=== PATIENT | female | born 2000 | race American Indian/Alaskan Native ===

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

== ENCOUNTER 2018-07-20 14:31 | Inpatient (IN) | payer OTHER ==
[2018-07-20] MEDS ORDERED: Oxytocin/Lactated Ringers 10 UNIT/1,000 ML BAG IV SCH (18:16)
[2018-07-20] MEDS ORDERED: Calcium Gluconate 10% 1 GM/10 ML SDV IV PRN (18:16)
[2018-07-20] MEDS ORDERED: Misoprostol 100 MCG Tab VAG PRN (18:16)
[2018-07-20] MEDS ORDERED: Ondansetron 4 MG/2 ML SDV IVPUSH PRN (18:16)
[2018-07-20] MEDS ORDERED: Sodium Chloride 0.9% 10 ML Syringe FLUSH PRN (18:16)
[2018-07-20] MEDS ORDERED: Misoprostol 25 MCG (1/4 of 100 MCG) Tab ONE ×2 (18:16→22:39)
--- NOTE | 2018-07-20 18:37 | PCM.LDHP ---
L&D History of Present Illness - General Date of Service: 07/20/18 Admit Problem/Dx: Patient Status Order with Admit Dx/Problem 07/20/18 18:16 Patient Status [ADT] Routine Admission Diagnosis/Problem Admission Diagnosis/Problem Pre-eclampsia in third trimester Source of Information: Patient History Limitations: Reports: No Limitations - History of Present Illness Introduction:: Gladis Flaherty is a 17-year-old at 38 weeks 5 days by 11 week ultrasound who was sent down to labor and delivery for evaluation of elevated blood pressures in the clinic. Her initial blood pressure in the clinic was 154 /84 and on repeat was 144/80. She denied any headaches, vision changes or epigastric pain with her elevated blood pressures. She denies any contractions or cramping. Denies any continuous leaking of fluid or vaginal bleeding. Reports that she did have 2 episodes of small amounts of leaking of fluid that did not continue and stopped spontaneously. She has been having good movement. Present Illness Comments:: Gladis Flaherty is a 17-year-old at 38 weeks 5 days by 11 week ultrasound who is undergoing medical induction of labor for preeclampsia without severe features. Her has been overall uncomplicated. She was given the flu shot on 01/13/2018. She was given TDaP vaccine on 05/11/2018. She has had routine care with myself starting at 11 weeks gestational age. 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 G1: 08/2017, SAB at approximately 6 weeks' gestational age G2: Current labs Blood type: A+ Antibody screen: Negative First trimester hematocrit/hemoglobin: 40.4%/13.2 on 01/13/2018 Platelets: 452 on 01/13/2018 Urine culture: Negative Rubella status: Immune Hepatitis B surface antigen: Negative RPR: Negative HIV: Negative Gonorrhea: Negative Chlamydia: Negative Anatomy ultrasound: Normal anatomy ultrasound, posterior placenta One hour glucose tolerance test: Abnormal at 231 Second trimester hematocrit/hemoglobin: 29.2%/9.0 on 06/16/2018 Platelets: 398 on 06/16/2018 3 hour glucose tolerance test: Fasting 95, 1 hour 155, 2 hour 116 and three- hour 115 GBS status: Negative - Related Data Allergies/Adverse Reactions: Allergies Allergy/AdvReac Type Severity Reaction Status Date / Time No Known Allergies Allergy Verified 07/20/18 15:35 Home Medications: Home Meds Vit No.129/Iron/FA [ One Daily Tablet] 1 tab PO DAILY 02/27/18 [History] Promethazine [Phenergan] 25 mg PO Q6H PRN 07/02/18 [History] Past Medical History Genitourinary History: Reports: UTI, Recurrent 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: , 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 Psychiatric History: Reports: Anxiety, Depression, Suicide Attempt (History of) - Past Surgical History HEENT Surgical History: Reports: Other (See Below) Other HEENT Surgeries/Procedures: ear surgery Social & Family History - Family History Family Medical History: Noncontributory - Tobacco Use Smoking Status *Q: Never Smoker - Tobacco Core Measures Tobacco Use/Smoking Within Last 30 Days: No Smokeless Tobacco Use in Last 30 Days: No - Caffeine Use Caffeine Use: Reports: Soda - Alcohol Use Alcohol Use History: No - Recreational Drug Use Recreational Drug Use: No - Living Situation & Occupation Living situation: Reports: Single Occupation: Employed H&P Review of Systems - Review of Systems: Review Of Systems: See Below General: Denies: Fever, Chills, Malaise, Weakness, Fatigue HEENT: Reports: Rhinitis, Post Nasal Drip, Sinus Congestion. Denies: Sore Throat, Visual Changes Pulmonary: Reports: Shortness of Breath (For the last 2 weeks), Cough (With viral respiratory illness) Cardiovascular: Denies: Chest Pain, Palpitations, Orthopnea Gastrointestinal: Denies: Abdominal Pain, Constipation, Diarrhea, Nausea, Vomiting Genitourinary: Denies: Dysuria, Frequency, Burning, Pain, Urgency Musculoskeletal: Reports: Back Pain (And pelvic pain) Skin: Denies: Rash, Lesions Psychiatric: Denies: Depression, Anxiety, Suicidal Ideation Neurological: Denies: Headache Hematologic/Lymphatic: Reports: Anemia L&D Exam - Exam Exam: See Below - Vital Signs Vital Signs: Last Vital Signs Temp 36.8 C 07/20/18 14:48 Pulse 102 H 07/20/18 16:00 Resp 16 07/20/18 14:48 BP 135/81 07/20/18 16:00 Pulse Ox 98 07/20/18 14:48 Weight: 105.007 kg - OB Specific Contraction Intensity: Irritability Movement: Active Heart Tones: Present Heart Tones per Min: 150 (+15 x 15 accelerations, no decelerations) Heart Rate (FHR) Variability: Moderate (6-25 bmp) Presentation: Vertex Estimated Weight: 7.5-8 pounds by Jonah's - Chisholm Score Chisholm Score Cervix Position: Posterior Chisholm Score Consistency: Medium Chisholm Score Effacement: 0-30% Chisholm Score Dilation: Closed (0.5 cm) Chisholm Score 's Station: -3 (-4) Chisholm Score Total: 1 - Exam General: Alert, Oriented HEENT: Conjunctiva Clear, EOMI Neck: Supple, Trachea Midline Lungs: Clear to Auscultation, Normal Respiratory Effort Cardiovascular: Regular Rate, Regular Rhythm GI/Abdominal Exam: Soft, Non-Tender, No Distention, Other (Gravid). No: Guarding, Rigid, Rebound Genitourinary: Normal external exam Back Exam: Normal Inspection Extremities: Normal Inspection, Pedal Edema (1+) Skin: Warm, Dry, Intact DTR: 1+: Bicep (L), Bicep (R), Patella (L), Patella (R) Psychiatric: Alert, Normal Affect, Normal Mood - Patient Data Lab Results Last 24 hrs: Laboratory Results - last 24 hr 07/20/18 07/20/18 07/20/18 Range/Units 14:55 14:55 16:10 WBC 11.01 H (3.98-10.04) K/mm3 RBC 4.06 (3.98-5.22) M/mm3 Hgb 9.3 L (11.2-15.7) gm/L Hct 31.7 L (34.1-44.9) % MCV 78.1 L (79.4-94.8) fl MCH 22.9 L (25.6-32.2) pg MCHC 29.3 L (32.2-35.5) g/dl RDW Std Deviation 54.5 H (36.4-46.3) fL Plt Count 425 H (182-369) K/mm3 MPV 8.3 L (9.4-12.3) fl Neut % (Auto) 74.8 H (34.0-71.1) % Lymph % (Auto) 15.0 L (19.3-51.7) % [place] % (Auto) 6.7 (4.7-12.5) % Eos % (Auto) 1.4 (0.7-5.8) Baso % (Auto) 0.3 (0.1-1.2) % Neut # (Auto) 8.24 H (1.56-6.13) K/mm3 Lymph # (Auto) 1.65 (1.18-3.74) K/mm3 [place] # (Auto) 0.74 H (0.24-0.36) K/mm3 Eos # (Auto) 0.15 (0.04-0.36) K/mm3 Baso # (Auto) 0.03 (0.01-0.08) K/mm3 Manual Slide Review Abnormal smear Sodium 139 (136-145) mEq/L Potassium 4.1 (3.5-5.1) mEq/L Chloride 103 (98-107) mEq/L Carbon Dioxide 22 (21-32) mEq/L Anion Gap 18.1 H (5-15) BUN 10 (7-18) mg/dL Creatinine 0.8 (0.55-1.02) mg/dL Est Cr Clr Drug Dosing 101.78 mL/min Estimated GFR (MDRD) > 60 (>60) mL/min BUN/Creatinine Ratio 12.5 L (14-18) Glucose 153 H (74-106) mg/dL Calcium 9.1 (8.5-10.1) mg/dL Total Bilirubin 0.2 (0.2-1.0) mg/dL AST 23 (15-37) U/L ALT 22 (14-59) U/L Alkaline Phosphatase 163 H (46-116) U/L Total Protein 6.8 (6.4-8.2) g/dl Albumin 2.3 L (3.4-5.0) g/dl Globulin 4.5 gm/dL Albumin/Globulin Ratio 0.5 L (1-2) Ur Random Creatinine 107.5 (30.0-125.0) mg/dL U Random Total Protein 112.3 H (0.0-11.8) mg/dL Protein/Creatinin Ratio 1044.7 H (0-149) mg/g Result Diagrams: 07/20/18 14:55 07/20/18 14:55 - Problem List (1) 38 weeks gestation of SNOMED Code(s): 48974008 ICD Code: Z3A.38 - 38 WEEKS GESTATION OF Status: Acute Current Visit: Yes (2) Pre-eclampsia during in third trimester, antepartum SNOMED Code(s): 938033691, 124906407 ICD Code: O14.93 - UNSPECIFIED PRE-ECLAMPSIA, THIRD TRIMESTER Status: Acute Current Visit: Yes (3) Abnormal glucose tolerance test during , antepartum Status: Acute Current Visit: Yes (4) Anemia affecting in third trimester SNOMED Code(s): 81370089, 64932171 ICD Code: O99.013 - ANEMIA COMPLICATING , THIRD TRIMESTER Status: Acute Current Visit: Yes (5) Anxiety SNOMED Code(s): 78054060 ICD Code: F41.9 - ANXIETY DISORDER, UNSPECIFIED Status: Acute Current Visit: Yes (6) Depression SNOMED Code(s): 11058125 ICD Code: F32.9 - MAJOR DEPRESSIVE DISORDER, SINGLE EPISODE, UNSPECIFIED Status: Acute Current Visit: Yes Problem List Initiated/Reviewed/Updated: Yes Orders Last 24hrs: Active Orders 24 hr Category Date Time Status Patient Status [ADT] Routine ADT 07/20/18 18:16 Active Activity as Tolerated [RC] PFP Care 07/20/18 18:16 Active Communication Order [RC] ASDIRECTED Care 07/20/18 18:16 Active Communication Order [RC] ASDIRECTED Care 07/20/18 18:16 Active Communication Order [RC] ASDIRECTED Care 07/20/18 18:16 Active Communication Order [RC] ASDIRECTED Care 07/20/18 18:16 Active Communication Order [RC] ASDIRECTED Care 07/20/18 18:16 Active Heart Tones [RC] ASDIRECTED Care 07/20/18 18:16 Active Monitoring [RC] CONTINUOUS Care 07/20/18 18:16 Active Notify Provider Status Change [RC] ASDIRECTED Care 07/20/18 18:16 Active Notify Provider Vital Signs [RC] PRN Care 07/20/18 18:16 Active Notify Provider [RC] ASDIRECTED Care 07/20/18 18:16 Active Notify Provider [RC] ASDIRECTED Care 07/20/18 18:16 Active Notify Provider [RC] PFP Care 07/20/18 18:16 Active Notify Provider [RC] PRN Care 07/20/18 18:16 Active Oxygen Therapy [RC] PRN Care 07/20/18 18:16 Active Peripheral IV Care [RC] . DIRECTED Care 07/20/18 18:16 Active Pump Management, Intrathecal [RC] ASDIRECTED Care 07/20/18 18:16 Active Urinary Catheter Assessment [RC] ASDIRECTED Care 07/20/18 18:16 Active Vaginal Exam [RC] ASDIRECTED Care 07/20/18 18:16 Active Vital Signs [RC] ASDIRECTED Care 07/20/18 18:16 Active Vital Signs [RC] ASDIRECTED Care 07/20/18 18:16 Active Vital Signs [RC] PER UNIT ROUTINE Care 07/20/18 18:16 Active Regular Diet [DIET] Diet 07/20/18 Dinner Active RAPID PLASMA REAGIN,RPR [CHEM] Routine Lab 07/20/18 18:16 Ordered Calcium Gluconate Med 07/20/18 18:16 Active 1 gm IV ASDIRECTED PRN Lactated Ringers [Ringers, Lactated] 1,000 ml Med 07/20/18 18:16 Active IV ASDIRECTED Ondansetron [Zofran] Med 07/20/18 18:16 Active 4 mg IVPUSH Q4H PRN Oxytocin/Lactated Ringers [Pitocin in LR 10 Units/1,000 Med 07/20/18 18:16 Active ML] 10 unit in 1,000 ml IV .CONTINUOUS Sodium Chloride 0.9% [Saline Flush] Med 07/20/18 18:16 Active 10 ml FLUSH ASDIRECTED PRN miSOPROStol [Cytotec] Med 07/20/18 18:16 Active 25 mcg VAG Q4H PRN Blood Pressure [OM.PC] ASDIRECTED Oth 07/20/18 18:16 Ordered Deep Tendon Reflexes [WOMSER] ASDIRECTED Oth 07/20/18 18:16 Ordered Electronic Heart Tones Ext w TOCO [WOMSER] Oth 07/20/18 18:16 Ordered Routine Electronic Heart Tones Internal [WOMSER] Per Unit Oth 07/20/18 18:16 Ordered Routine Peripheral IV Insertion Adult [OM.PC] Routine Oth 07/20/18 18:16 Ordered Resuscitation Status Routine Resus Stat 07/20/18 14:39 Ordered Medication Orders Calcium Gluconate (Calcium Gluconate) 1 gm IV ASDIRECTED PRN PRN Reason: respiratory distress Lactated Ringer's (Ringers, Lactated) 1,000 mls @ 100 mls/hr IV ASDIRECTED ELLIOTT Oxytocin/Lactated Ringer's (Pitocin In Lr 10 Units/1,000 Ml) 10 unit in 1,000 mls @ 100 mls/hr IV .CONTINUOUS ELLIOTT Misoprostol (Cytotec) 25 mcg VAG Q4H PRN PRN Reason: cervical ripening Last Admin: 07/20/18 18:26 Dose: 25 mcg Ondansetron HCl (Zofran) 4 mg IVPUSH Q4H PRN PRN Reason: Nausea/Vomiting Sodium Chloride (Saline Flush) 10 ml FLUSH ASDIRECTED PRN PRN Reason: Keep Vein Open Assessment/Plan Comment:: Refer to observation for medical induction of labor with preeclampsia without severe features based on mild range blood pressures 4 hours apart and urine protein/creatinine ratio of 1.044 Start induction of labor with Cytotec 25 mcg vaginally now and every 4 hours Attempt was made for introduction of 24 [place] Ortiz bulb but unable to place the Ortiz bulb at the time of exam. Will reattempt based on progression of labor. Intermittent monitoring while on Cytotec with monitoring for 30 minutes after placement of Cytotec and may ambulate as tolerated with category [address] IV and have Lactated Ringer's at 125 ml/hr if not tolerating regular diet May have regular diet while on Cytotec induction Activity as tolerated May have epidural as desired Plans to breast-feed after delivery Monitor blood pressures closely for severe range pressures that would need treatment Anticipate vaginal delivery unless otherwise indicated Amrik Medina M.D. 6:47 PM 07/20/2018
[2018-07-20] MEDS ORDERED: Bupivacaine 0.25% 10 ML SDV ONE (22:00)
[2018-07-20] MEDS: Lactated Ringers 1,000 ML IV SCH (22:00)
[2018-07-21] MEDS ORDERED: Misoprostol 25 MCG (1/4 of 100 MCG) Tab ONE (04:24)
[2018-07-21] MEDS: Lactated Ringers 1,000 ML IV SCH ×4 (05:08→12:19)
[2018-07-21] MEDS ORDERED: fentaNYL 100 MCG/2 ML SDV ONE (05:15)
[2018-07-21] MEDS ORDERED: diphenhydrAMINE 50 MG/ML SDV IVPUSH PRN (05:20)
[2018-07-21] MEDS ORDERED: fentaNYL/Bupivacaine-NS 2 MCG/ML-0.125%/PF 100 ML Bag EPIDUR ONE (05:20)
[2018-07-21] MEDS ORDERED: ePHEDrine 50 MG/ML SDV IVPUSH PRN (05:20)
[2018-07-21] MEDS ORDERED: fentaNYL 100 MCG/2 ML SDV EPIDUR PRN (05:20)
--- NOTE | 2018-07-21 05:55 | PCM.PREANE ---
Preanesthetic Assessment - Anesthesia/Transfusion/Family Hx Anesthesia History: No Prior Anesthesia Family History of Anesthesia Reaction: No Transfusion History: No Prior Transfusion(s) Intubation History: Unknown - Review of Systems General: No Symptoms Pulmonary: No Symptoms Cardiovascular: No Symptoms Gastrointestinal: No Symptoms Neurological: No Symptoms Other: Reports: None - Physical Assessment Pulse: 102 O2 Sat by Pulse Oximetry: 98 Respiratory Rate: 16 Blood Pressure: 135/81 Vital Signs: Last Vital Signs Temp 36.8 C 07/20/18 14:48 Pulse 102 H 07/20/18 16:00 Resp 16 07/20/18 14:48 BP 135/81 07/20/18 16:00 Pulse Ox 98 07/20/18 14:48 Height: 1.65 m Weight: 105.007 kg ASA Class: 2E Mental Status: Alert & Oriented x3 Dentition: Reports: Normal Dentition ROM/Head Extension: Full Lungs: Clear to Auscultation, Normal Respiratory Effort Cardiovascular: Regular Rate, Regular Rhythm, No Murmurs - Lab Values: Laboratory Last Values WBC 11.01 K/mm3 (3.98-10.04) H 07/20/18 14:55 RBC 4.06 M/mm3 (3.98-5.22) 07/20/18 14:55 Hgb 9.3 gm/L (11.2-15.7) L 07/20/18 14:55 Hct 31.7 % (34.1-44.9) L 07/20/18 14:55 MCV 78.1 fl (79.4-94.8) L 07/20/18 14:55 MCH 22.9 pg (25.6-32.2) L 07/20/18 14:55 MCHC 29.3 g/dl (32.2-35.5) L 07/20/18 14:55 RDW Std Deviation 54.5 fL (36.4-46.3) H 07/20/18 14:55 Plt Count 425 K/mm3 (182-369) H 07/20/18 14:55 MPV 8.3 fl (9.4-12.3) L 07/20/18 14:55 Neut % (Auto) 74.8 % (34.0-71.1) H 07/20/18 14:55 Lymph % (Auto) 15.0 % (19.3-51.7) L 07/20/18 14:55 [place] % (Auto) 6.7 % (4.7-12.5) 07/20/18 14:55 Eos % (Auto) 1.4 (0.7-5.8) 07/20/18 14:55 Baso % (Auto) 0.3 % (0.1-1.2) 07/20/18 14:55 Neut # (Auto) 8.24 K/mm3 (1.56-6.13) H 07/20/18 14:55 Lymph # (Auto) 1.65 K/mm3 (1.18-3.74) 07/20/18 14:55 [place] # (Auto) 0.74 K/mm3 (0.24-0.36) H 07/20/18 14:55 Eos # (Auto) 0.15 K/mm3 (0.04-0.36) 07/20/18 14:55 Baso # (Auto) 0.03 K/mm3 (0.01-0.08) 07/20/18 14:55 Manual Slide Review Abnormal smear 07/20/18 14:55 Sodium 139 mEq/L (136-145) 07/20/18 14:55 Potassium 4.1 mEq/L (3.5-5.1) 07/20/18 14:55 Chloride 103 mEq/L (98-107) 07/20/18 14:55 Carbon Dioxide 22 mEq/L (21-32) 07/20/18 14:55 Anion Gap 18.1 (5-15) H 07/20/18 14:55 BUN 10 mg/dL (7-18) 07/20/18 14:55 Creatinine 0.8 mg/dL (0.55-1.02) 07/20/18 14:55 Est Cr Clr Drug Dosing 101.78 mL/min 07/20/18 14:55 Estimated GFR (MDRD) > 60 mL/min (>60) 07/20/18 14:55 BUN/Creatinine Ratio 12.5 (14-18) L 07/20/18 14:55 Glucose 153 mg/dL (74-106) H 07/20/18 14:55 Calcium 9.1 mg/dL (8.5-10.1) 07/20/18 14:55 Total Bilirubin 0.2 mg/dL (0.2-1.0) 07/20/18 14:55 AST 23 U/L (15-37) 07/20/18 14:55 ALT 22 U/L (14-59) 07/20/18 14:55 Alkaline Phosphatase 163 U/L (46-116) H 07/20/18 14:55 Total Protein 6.8 g/dl (6.4-8.2) 07/20/18 14:55 Albumin 2.3 g/dl (3.4-5.0) L 07/20/18 14:55 Globulin 4.5 gm/dL 07/20/18 14:55 Albumin/Globulin Ratio 0.5 (1-2) L 07/20/18 14:55 Ur Random Creatinine 107.5 mg/dL (30.0-125.0) 07/20/18 16:10 U Random Total Protein 112.3 mg/dL (0.0-11.8) H 07/20/18 16:10 Protein/Creatinin Ratio 1044.7 mg/g (0-149) H 07/20/18 16:10 RPR Non-reactive (NONREACTIVE) 07/20/18 14:55 - Allergies Allergies/Adverse Reactions: Allergies Allergy/AdvReac Type Severity Reaction Status Date / Time No Known Allergies Allergy Verified 07/20/18 15:35 - Blood Blood Available: No - Acknowledgements Anesthesia Type Planned: Epidural Pt an Appropriate Candidate for the Planned Anesthesia: Yes Alternatives and Risks of Anesthesia Discussed w Pt/Guardian: Yes Pt/Guardian Understands and Agrees with Anesthesia Plan: Yes Additional Comments: pre PreAnesthesia Questionnaire - Past Health History Medical/Surgical History: Denies Medical/Surgical History Genitourinary History: Reports: UTI, Recurrent 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: , 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 Psychiatric History: Reports: Anxiety, Depression, Suicide Attempt (History of) - Past Surgical History HEENT Surgical History: Reports: Other (See Below) Other HEENT Surgeries/Procedures: ear surgery - SUBSTANCE USE Smoking Status *Q: Never Smoker Recreational Drug Use History: No - HOME MEDS Home Medications: Home Meds Vit No.129/Iron/FA [ One Daily Tablet] 1 tab PO DAILY 02/27/18 [History] Promethazine [Phenergan] 25 mg PO Q6H PRN 07/02/18 [History] - CURRENT (IN HOUSE) MEDS Current Meds: Current Medications Calcium Gluconate (Calcium Gluconate) 1 gm IV ASDIRECTED PRN PRN Reason: respiratory distress Diphenhydramine HCl (Benadryl) 25 mg IVPUSH Q6H PRN PRN Reason: Pruritis Ephedrine Sulfate (Ephedrine Sulfate) 5 mg IVPUSH ONETIME PRN PRN Reason: Hypotension Fentanyl (Sublimaze) 100 mcg EPIDUR Q3H PRN PRN Reason: Pain Last Admin: 07/21/18 05:47 Dose: 100 mcg Lactated Ringer's (Ringers, Lactated) 1,000 mls @ 100 mls/hr IV ASDIRECTED ELLIOTT Last Admin: 07/21/18 05:08 Dose: 999 mls/hr Oxytocin/Lactated Ringer's (Pitocin In Lr 10 Units/1,000 Ml) 10 unit in 1,000 mls @ 100 mls/hr IV .CONTINUOUS [facility] Misoprostol (Cytotec) 25 mcg VAG Q4H PRN PRN Reason: cervical ripening Last Admin: 07/20/18 18:26 Dose: 25 mcg Ondansetron HCl (Zofran) 4 mg IVPUSH Q4H PRN PRN Reason: Nausea/Vomiting Sodium Chloride (Saline Flush) 10 ml FLUSH ASDIRECTED PRN PRN Reason: Keep Vein Open Discontinued Medications Fentanyl (Sublimaze) Confirm Administered Dose 100 mcg .ROUTE .STK-MED ONE Stop: 07/21/18 05:16 Fentanyl/Bupivacaine HCl (Xvtuhhdu-Mmanm-Mp 2 Mcg/Ml-0.125%) 100 ml EPIDUR ONETIME ONE Stop: 07/21/18 05:21 Last Admin: 07/21/18 05:48 Dose: 100 ml Misoprostol (Cytotec) Confirm Administered Dose 25 mcg .ROUTE .STK-MED ONE Stop: 07/20/18 18:17 Last Admin: 07/20/18 18:22 Dose: Not Given Misoprostol (Cytotec) Confirm Administered Dose 25 mcg .ROUTE .STK-MED ONE Stop: 07/20/18 22:40 Last Admin: 07/21/18 00:06 Dose: 25 mcg Misoprostol (Cytotec) Confirm Administered Dose 25 mcg .ROUTE .STK-MED ONE Stop: 07/21/18 04:25 Last Admin: 07/21/18 04:32 Dose: 25 mcg
--- NOTE | 2018-07-21 05:56 | PCM.POSTAN ---
POST ANESTHESIA ASSESSMENT - MENTAL STATUS Mental Status: Alert - RESPIRATORY Respiratory Status: Respiratory Rate WNL, Airway Patent, O2 Saturation Stable - CARDIOVASCULAR CV Status: Pulse Rate WNL, Blood Pressure Stable - GASTROINTESTINAL GI Status: No Symptoms - POST OP HYDRATION Hydration Status: Adequate & Stable
--- NOTE | 2018-07-21 07:53 | PCM.PNLD ---
Labor Progress Note - VS & Meds Vital Signs: Last Vital Signs Temp 36.8 C 07/20/18 14:48 Pulse 102 H 07/21/18 05:55 Resp 16 07/21/18 05:55 BP 135/81 07/21/18 05:55 Pulse Ox 98 07/21/18 05:55 Active Medications: Current Medications Calcium Gluconate (Calcium Gluconate) 1 gm IV ASDIRECTED PRN PRN Reason: respiratory distress Diphenhydramine HCl (Benadryl) 25 mg IVPUSH Q6H PRN PRN Reason: Pruritis Ephedrine Sulfate (Ephedrine Sulfate) 5 mg IVPUSH ONETIME PRN PRN Reason: Hypotension Fentanyl (Sublimaze) 100 mcg EPIDUR Q3H PRN PRN Reason: Pain Last Admin: 07/21/18 05:47 Dose: 100 mcg Lactated Ringer's (Ringers, Lactated) 1,000 mls @ 100 mls/hr IV ASDIRECTED ELLIOTT Last Admin: 07/21/18 06:00 Dose: 999 mls/hr Oxytocin/Lactated Ringer's (Pitocin In Lr 10 Units/1,000 Ml) 10 unit in 1,000 mls @ 100 mls/hr IV .CONTINUOUS [facility] Misoprostol (Cytotec) 25 mcg VAG Q4H PRN PRN Reason: cervical ripening Last Admin: 07/20/18 18:26 Dose: 25 mcg Ondansetron HCl (Zofran) 4 mg IVPUSH Q4H PRN PRN Reason: Nausea/Vomiting Sodium Chloride (Saline Flush) 10 ml FLUSH ASDIRECTED PRN PRN Reason: Keep Vein Open Discontinued Medications Fentanyl (Sublimaze) Confirm Administered Dose 100 mcg .ROUTE .STK-MED ONE Stop: 07/21/18 05:16 Last Admin: 07/21/18 07:30 Dose: Not Given Fentanyl/Bupivacaine HCl (Krnoqvoy-Jkzmr-Iy 2 Mcg/Ml-0.125%) 100 ml EPIDUR ONETIME ONE Stop: 07/21/18 05:21 Last Admin: 07/21/18 05:48 Dose: 100 ml Misoprostol (Cytotec) Confirm Administered Dose 25 mcg .ROUTE .STK-MED ONE Stop: 07/20/18 18:17 Last Admin: 07/20/18 18:22 Dose: Not Given Misoprostol (Cytotec) Confirm Administered Dose 25 mcg .ROUTE .STK-MED ONE Stop: 07/20/18 22:40 Last Admin: 07/21/18 00:06 Dose: 25 mcg Misoprostol (Cytotec) Confirm Administered Dose 25 mcg .ROUTE .STK-MED ONE Stop: 07/21/18 04:25 Last Admin: 07/21/18 04:32 Dose: 25 mcg - Uterine Contractions Uterine Monitoring Mode: External [place] Contraction Frequency (min): 1.5-3 Contraction Duration (sec): 30-75 Contraction Intensity: Moderate to Strong Uterine Resting Tone: Soft - Monitoring Monitor Mode: Doppler/Auscultation Heart Rate (FHR) Baseline: 150 Heart Rate (FHR) Per Doppler: 150 Heart Rate (FHR) Variability: Moderate (6-25 bmp) Accelerations: Present, 15x15 Decelerations: None Strip Review: Category I - Vaginal Exam Dilation (cm): 4 Effacement (Percent): 90 Station: -2 Cervical Position: Anterior Sterile Vaginal Exam Performed By: Amrik Medina Vaginal Exam Comment: Suspected spontaneous rupture membranes at 5:40 AM per nurse. Able to feel 's hair on exam and likely confirms the spontaneous rupture membranes. - Labor Progress (Free Text) Labor Progress: Patient progressing well after 3 doses of Cytotec. Patient with epidural in place and doing well. Cervix changing at this time after Cytotec and will plan to start on Pitocin to help with regularity of her contractions Continue to monitor blood pressures. Treat for severe range blood pressures as indicated. Patient with persistent mild range blood pressures throughout the night. Continue with induction of labor for preeclampsia without severe features Anticipate vaginal delivery unless otherwise indicated Amrik Medina M.D. 7:52 AM 07/21/2018
--- NOTE | 2018-07-21 08:58 | PCM48HPAN ---
Post Anesthesia Note - EVALUATION WITHIN 48HRS OF ANESTHETIC Patient Participated in Evaluation: Yes Respiratory Function Stable: Yes Airway Patent: Yes Cardiovascular Function Stable: Yes Hydration Status Stable: Yes Pain Control Satisfactory: Yes Nausea and Vomiting Control Satisfactory: Yes Pulse Rate: 102 Resp Rate: 16 Blood Pressure: 135/81
[2018-07-21] MEDS ORDERED: Oxytocin/Lactated Ringers 10 UNIT/1,000 ML BAG IV SCH ×2 (09:00→15:52)
[2018-07-21] MEDS ORDERED: fentaNYL/Bupivacaine-NS 2 MCG/ML-0.125%/PF 100 ML Bag EPIDUR PRN (13:25)
[2018-07-21] MEDS ORDERED: Misoprostol 25 MCG (1/4 of 100 MCG) Tab VAG PRN (13:29)
[2018-07-21] MEDS ORDERED: Lidocaine 1% 50 ML MDV INJECT ONE (14:51)
[2018-07-21] MEDS ORDERED: Lanolin 100% Cream 7 GM Tube TOP PRN (15:52)
[2018-07-21] MEDS ORDERED: Witch Hazel Medicated Pads 40/Jar TOP PRN (15:52)
[2018-07-21] MEDS ORDERED: Docusate Sodium 100 MG Cap PO PRN (15:52)
[2018-07-21] MEDS ORDERED: Benzocaine/Menthol 20%-0.5% Spray 56 GM Canister TOP PRN (15:52)
[2018-07-21] MEDS ORDERED: Hydrocortisone Acetate 25 MG Supp RECTAL PRN (15:52)
[2018-07-21] MEDS ORDERED: Acetaminophen 325 MG Tab PO PRN (15:52)
--- NOTE | 2018-07-21 15:59 | PCM.DEL ---
L & D Note - General Info Date of Service: 07/21/18 Mother's Due Date: 07/29/18 - Delivery Note Labor: Augmented by Oxytocin Cervical Ripening Method: Misoprostil, Oxytocin Delivery Outcome: Livebirth Delivery Method: Spontaneous Vaginal Delivery-Single Presentation: Right Occiput Anterior (JOSE CRUZ) (with slight asynclitic presentation) Nuchal Cord: None Prep: Povidone-Iodine (Betadine Anesthesia Type: Epidural, Local Anesthetic: Lidocaine (Xylocaine) 1% Plain Local Anesthetic Volume: Other (10 ml) Amniotic Fluid Description: Clear Episiotomy Type: None Laceration: 2nd Degree, Perineal (Midline, repaired with 3-0 Vicryl) Suture type: Vicryl Suture size: 3-0 Placenta: Intact, Spontaneous Cord: 3 Vessels Estimated Blood Loss: 400 Resuscitation Needed: Yes : Bulb Syringe, Stimulated, Warmed, Merino Used Provider: Amrik Medina Score 1 min: 9 Score 5 min: 9 Delivery Comments (Free Text/Narrative):: Stage I: Gladis Flaherty was admitted for medical induction of labor at 38 weeks 5 days for preeclampsia without severe features based on mild range blood pressures and elevated urine protein/creatinine ratio of 1.044. On admission her cervix was dilated to 0.5 cm. She was GBS negative. She was given 3 total doses of Cytotec 25 mcg vaginally for cervical ripening. She had spontaneous rupture membranes with clear fluid. She was given an epidural for anesthesia. In the morning of hospital day #2 she was 4 cm dilated and transitioned to Pitocin for augmentation of labor. She progressed complete and pushing. Stage II: On 07/21/2018 she had a normal vaginal delivery of a live male infant at 1430. Apgars of 9 & 9. Weight of 3950 g (8 lbs 11.3 oz). Length of 22 inches. There was no nuchal cord. Infant was delivered in JOSE CRUZ position with slightly asynclitic presentation. The cord was doubly clamped and cut by father of the . was placed on mother's abdomen. Stage III: She had a spontaneous delivery of an intact placenta in Chery presentation. Three vessel cord. She was given pitocin and fundal massage. She had a second-degree midline perineal laceration that was repaired with 3-0 Vicryl. During repair of the laceration she had injection of 1% lidocaine 10 mL for local anesthesia. Mom and baby were stable to recovery. EBL of 400 mL. Amrik Medina MD 4:11 PM 07/21/2018 - General Info Date of Service: 07/21/18 - Patient Data Vitals - Most Recent: Last Vital Signs Temp 36.8 C 07/20/18 14:48 Pulse 102 H 07/21/18 08:58 Resp 16 07/21/18 08:58 BP 135/81 07/21/18 08:58 Pulse Ox 98 07/21/18 05:55 Weight - Most Recent: 105.007 kg I&O - Last 24 Hours: Intake & Output 07/21/18 07/21/18 07/21/18 06:59 14:59 22:59 Intake Total 5640 Output Total 800 Balance 4840 Lab Results Last 24 Hours: Laboratory Results - last 24 hr 07/20/18 07/20/18 Range/Units 14:55 16:10 Ur Random Creatinine 107.5 (30.0-125.0) mg/dL U Random Total Protein 112.3 H (0.0-11.8) mg/dL Protein/Creatinin Ratio 1044.7 H (0-149) mg/g RPR Non-reactive (NONREACTIVE) Med Orders - Current: Current Medications Calcium Gluconate (Calcium Gluconate) 1 gm IV ASDIRECTED PRN PRN Reason: respiratory distress Diphenhydramine HCl (Benadryl) 25 mg IVPUSH Q6H PRN PRN Reason: Pruritis Ephedrine Sulfate (Ephedrine Sulfate) 5 mg IVPUSH ONETIME PRN PRN Reason: Hypotension Fentanyl (Sublimaze) 100 mcg EPIDUR Q3H PRN PRN Reason: Pain Last Admin: 07/21/18 05:47 Dose: 100 mcg Fentanyl/Bupivacaine HCl (Poxvnipf-Fatxb-Oz 2 Mcg/Ml-0.125%) 100 ml EPIDUR ONETIME PRN PRN Reason: Abdominal Pain Last Admin: 07/21/18 13:36 Dose: 100 ml Lactated Ringer's (Ringers, Lactated) 1,000 mls @ 100 mls/hr IV ASDIRECTED ELLIOTT Last Admin: 07/21/18 12:19 Dose: 125 mls/hr Oxytocin/Lactated Ringer's (Pitocin In Lr 10 Units/1,000 Ml) 10 unit in 1,000 mls @ 100 mls/hr IV .CONTINUOUS ELLIOTT Oxytocin/Lactated Ringer's (Pitocin In Lr 10 Units/1,000 Ml) 10 unit in 1,000 mls @ 12 mls/hr IV TITRATE ELLIOTT; Protocol Last Titration: 07/21/18 10:45 Dose: 8 munits/min, 48 mls/hr Misoprostol (Cytotec) 25 mcg VAG Q4H PRN PRN Reason: cervical ripening Ondansetron HCl (Zofran) 4 mg IVPUSH Q4H PRN PRN Reason: Nausea/Vomiting Sodium Chloride (Saline Flush) 10 ml FLUSH ASDIRECTED PRN PRN Reason: Keep Vein Open Discontinued Medications Bupivacaine HCl (Sensorcaine-Mpf 0.25%) 10 ml .ROUTE .STK-MED ONE Stop: 07/20/18 22:01 Fentanyl (Sublimaze) Confirm Administered Dose 100 mcg .ROUTE .STK-MED ONE Stop: 07/21/18 05:16 Last Admin: 07/21/18 07:30 Dose: Not Given Fentanyl/Bupivacaine HCl (Lhuvyoyc-Vejyp-Sv 2 Mcg/Ml-0.125%) 100 ml EPIDUR ONETIME ONE Stop: 07/21/18 05:21 Last Admin: 07/21/18 05:48 Dose: 100 ml Lidocaine HCl (Xylocaine 1%) 50 ml INJECT ONETIME ONE Stop: 07/21/18 14:52 Misoprostol (Cytotec) 25 mcg VAG Q4H PRN PRN Reason: cervical ripening Last Admin: 07/20/18 18:26 Dose: 25 mcg Misoprostol (Cytotec) Confirm Administered Dose 25 mcg .ROUTE .STK-MED ONE Stop: 07/20/18 18:17 Last Admin: 07/20/18 18:22 Dose: Not Given Misoprostol (Cytotec) Confirm Administered Dose 25 mcg .ROUTE .STK-MED ONE Stop: 07/20/18 22:40 Last Admin: 07/21/18 00:06 Dose: 25 mcg Misoprostol (Cytotec) Confirm Administered Dose 25 mcg .ROUTE .STK-MED ONE Stop: 07/21/18 04:25 Last Admin: 07/21/18 04:32 Dose: 25 mcg - Problem List & Annotations (1) 38 weeks gestation of SNOMED Code(s): 68172627 Code(s): Z3A.38 - 38 WEEKS GESTATION OF Status: Acute Current Visit: Yes (2) Pre-eclampsia during in third trimester, antepartum SNOMED Code(s): 310559748, 193364771 Code(s): O14.93 - UNSPECIFIED PRE-ECLAMPSIA, THIRD TRIMESTER Status: Acute Current Visit: Yes (3) Abnormal glucose tolerance test during , antepartum Status: Acute Current Visit: Yes (4) Anemia affecting in third trimester SNOMED Code(s): 62172205, 20511717 Code(s): O99.013 - ANEMIA COMPLICATING , THIRD TRIMESTER Status: Acute Current Visit: Yes (5) Anxiety SNOMED Code(s): 84528265 Code(s): F41.9 - ANXIETY DISORDER, UNSPECIFIED Status: Acute Current Visit: Yes (6) Depression SNOMED Code(s): 62862781 Code(s): F32.9 - MAJOR DEPRESSIVE DISORDER, SINGLE EPISODE, UNSPECIFIED Status: Acute Current Visit: Yes (7) Pre-eclampsia, delivered SNOMED Code(s): 074179190, 795134560 Code(s): O14.94 - UNSPECIFIED PRE-ECLAMPSIA, COMPLICATING CHILDBIRTH Status : Acute Current Visit: Yes (8) Vaginal delivery SNOMED Code(s): 230629632 Code(s): O80 - ENCOUNTER FOR FULL-TERM UNCOMPLICATED DELIVERY Status: Acute Current Visit: Yes (9) Second degree perineal laceration during delivery SNOMED Code(s): 3627705 Code(s): O70.1 - SECOND DEGREE PERINEAL LACERATION DURING DELIVERY Status: Acute Current Visit: Yes - Problem List Review Problem List Initiated/Reviewed/Updated: Yes - My Orders Last 24 Hours: My Active Orders 07/20/18 18:16 Patient Status [ADT] Routine Activity as Tolerated [RC] PFP Communication Order [RC] ASDIRECTED Communication Order [RC] ASDIRECTED Communication Order [RC] ASDIRECTED Communication Order [RC] ASDIRECTED Communication Order [RC] ASDIRECTED Heart Tones [RC] ASDIRECTED Monitoring [RC] CONTINUOUS Notify Provider Status Change [RC] ASDIRECTED Notify Provider Vital Signs [RC] PRN Notify Provider [RC] ASDIRECTED Notify Provider [RC] ASDIRECTED Notify Provider [RC] PFP Notify Provider [RC] PRN Oxygen Therapy [RC] PRN Peripheral IV Care [RC] . DIRECTED Pump Management, Intrathecal [RC] ASDIRECTED Vaginal Exam [RC] ASDIRECTED Vital Signs [RC] PER UNIT ROUTINE Calcium Gluconate 1 gm IV ASDIRECTED PRN Lactated Ringers [Ringers, Lactated] 1,000 ml IV ASDIRECTED Ondansetron [Zofran] 4 mg IVPUSH Q4H PRN Oxytocin/Lactated Ringers [Pitocin in LR 10 Units/1,000 ML] 10 unit in 1,000 ml IV .CONTINUOUS Sodium Chloride 0.9% [Saline Flush] 10 ml FLUSH ASDIRECTED PRN Blood Pressure [OM.PC] ASDIRECTED Deep Tendon Reflexes [WOMSER] ASDIRECTED Electronic Heart Tones Ext w TOCO [WOMSER] Routine Electronic Heart Tones Internal [WOMSER] Per Unit Routine Peripheral IV Insertion Adult [OM.PC] Routine 07/20/18 Dinner Regular Diet [DIET] 07/21/18 09:00 Oxytocin/Lactated Ringers [Pitocin in LR 10 Units/1,000 ML] 10 unit in 1,000 ml IV TITRATE 07/21/18 13:29 miSOPROStol [Cytotec] 25 mcg VAG Q4H PRN 07/21/18 15:02 Patient Status Manage Transfer [TRANSFER] Routine - Plan Plan:: Admit to inpatient following normal spontaneous vaginal delivery Continue Pitocin per unit protocol following delivery of placenta and lactated Ringer's until tolerating regular diet Regular diet Vitals per unit routine Continue close monitoring of blood pressures for worsening of preeclampsia and possible need for magnesium prophylaxis. Ibuprofen and Tylenol for pain control Assist with breast-feeding as needed Continue to monitor lochia Anticipate discharge home on day #2 Amrik Medina MD 4:11 PM 07/21/2018
[2018-07-21] MEDS: Ibuprofen 600 MG Tab PO PRN (16:25)
[2018-07-22] MEDS: Ibuprofen 600 MG Tab PO PRN ×2 (02:44→16:19)
[2018-07-22] MEDS: Prenatal Multivitamin with Calcium/Folic Acid/Iron Tab PO SCH (08:44)
--- NOTE | 2018-07-22 08:57 | PCM.SN ---
- Free Text/Narrative Note: Post Progress Note PPD # 1 Subjective: Doing well overall. Ambulating without difficulty. Lochia minimal. Voiding without difficulty. Tolerating regular diet but reports that she is having some mild nausea when laying on her sides. Denies any episodes of emesis. Pain controlled with oral medications. Reports that her pelvis feels sore. Breast-feeding with minimal difficulty. Denies any headaches, vision changes or epigastric pain. Objective: Vitals: Vital Signs - 24 hr 07/21/18 07/21/18 07/21/18 08:58 16:15 21:35 Temperature 36.7 C Temperature [ 37.5 C Temporal] Pulse, 102 H 101 H Peripheral Respiratory 16 18 16 Rate Blood Pressure 135/81 147/95 H Blood Pressure 146/76 H [Left Upper Arm ] O2 Sat by Pulse 96 Oximetry 07/22/18 07/22/18 01:37 02:41 Temperature 36.8 C Temperature [ Temporal] Pulse, 108 H Peripheral Respiratory 16 Rate Blood Pressure 145/72 H Blood Pressure [Left Upper Arm ] O2 Sat by Pulse 97 Oximetry Physical Exam General: Alert and oriented, no acute distress Lungs: Clear to auscultation bilaterally Heart: Regular rate and rhythm Abdomen: Soft, minimal appropriate tenderness, non-distended, fundus midline, nontender, and at the umbilicus Extremities: 1+ edema in bilateral lower extremities to knees Laboratory Tests 07/20/18 07/20/18 07/20/18 Range/Units 14:55 14:55 14:55 WBC 11.01 H (3.98-10.04) K/mm3 RBC 4.06 (3.98-5.22) M/mm3 Hgb 9.3 L (11.2-15.7) gm/L Hct 31.7 L (34.1-44.9) % MCV 78.1 L (79.4-94.8) fl MCH 22.9 L (25.6-32.2) pg MCHC 29.3 L (32.2-35.5) g/dl RDW Std Deviation 54.5 H (36.4-46.3) fL Plt Count 425 H (182-369) K/mm3 MPV 8.3 L (9.4-12.3) fl Neut % (Auto) 74.8 H (34.0-71.1) % Lymph % (Auto) 15.0 L (19.3-51.7) % [place] % (Auto) 6.7 (4.7-12.5) % Eos % (Auto) 1.4 (0.7-5.8) Baso % (Auto) 0.3 (0.1-1.2) % Neut # (Auto) 8.24 H (1.56-6.13) K/mm3 Lymph # (Auto) 1.65 (1.18-3.74) K/mm3 [place] # (Auto) 0.74 H (0.24-0.36) K/mm3 Eos # (Auto) 0.15 (0.04-0.36) K/mm3 Baso # (Auto) 0.03 (0.01-0.08) K/mm3 Manual Slide Review Abnormal smear Sodium 139 (136-145) mEq/L Potassium 4.1 (3.5-5.1) mEq/L Chloride 103 (98-107) mEq/L Carbon Dioxide 22 (21-32) mEq/L Anion Gap 18.1 H (5-15) BUN 10 (7-18) mg/dL Creatinine 0.8 (0.55-1.02) mg/dL Est Cr Clr Drug Dosing 101.78 mL/min Estimated GFR (MDRD) > 60 (>60) mL/min BUN/Creatinine Ratio 12.5 L (14-18) Glucose 153 H (74-106) mg/dL Calcium 9.1 (8.5-10.1) mg/dL Total Bilirubin 0.2 (0.2-1.0) mg/dL AST 23 (15-37) U/L ALT 22 (14-59) U/L Alkaline Phosphatase 163 H (46-116) U/L Total Protein 6.8 (6.4-8.2) g/dl Albumin 2.3 L (3.4-5.0) g/dl Globulin 4.5 gm/dL Albumin/Globulin Ratio 0.5 L (1-2) Ur Random Creatinine (30.0-125.0) mg/dL U Random Total Protein (0.0-11.8) mg/dL Protein/Creatinin Ratio (0-149) mg/g RPR Non-reactive (NONREACTIVE) 04/23/19 04/25/19 Range/Units 16:10 06:55 WBC 17.55 H (3.98-10.04) K/mm3 RBC 3.46 L (3.98-5.22) M/mm3 Hgb 7.8 L D (11.2-15.7) gm/L Hct 27.1 L (34.1-44.9) % MCV 78.3 L (79.4-94.8) fl MCH 22.5 L (25.6-32.2) pg MCHC 28.8 L (32.2-35.5) g/dl RDW Std Deviation 53.2 H (36.4-46.3) fL Plt Count 343 (182-369) K/mm3 MPV 9.1 L (9.4-12.3) fl Neut % (Auto) 77.1 H (34.0-71.1) % Lymph % (Auto) 12.8 L (19.3-51.7) % [place] % (Auto) 7.9 (4.7-12.5) % Eos % (Auto) 1.1 (0.7-5.8) Baso % (Auto) 0.3 (0.1-1.2) % Neut # (Auto) 13.53 H (1.56-6.13) K/mm3 Lymph # (Auto) 2.25 (1.18-3.74) K/mm3 [place] # (Auto) 1.38 H (0.24-0.36) K/mm3 Eos # (Auto) 0.20 (0.04-0.36) K/mm3 Baso # (Auto) 0.05 (0.01-0.08) K/mm3 Manual Slide Review Abnormal smear Sodium (136-145) mEq/L Potassium (3.5-5.1) mEq/L Chloride (98-107) mEq/L Carbon Dioxide (21-32) mEq/L Anion Gap (5-15) BUN (7-18) mg/dL Creatinine (0.55-1.02) mg/dL Est Cr Clr Drug Dosing mL/min Estimated GFR (MDRD) (>60) mL/min BUN/Creatinine Ratio (14-18) Glucose (74-106) mg/dL Calcium (8.5-10.1) mg/dL Total Bilirubin (0.2-1.0) mg/dL AST (15-37) U/L ALT (14-59) U/L Alkaline Phosphatase (46-116) U/L Total Protein (6.4-8.2) g/dl Albumin (3.4-5.0) g/dl Globulin gm/dL Albumin/Globulin Ratio (1-2) Ur Random Creatinine 107.5 (30.0-125.0) mg/dL U Random Total Protein 112.3 H (0.0-11.8) mg/dL Protein/Creatinin Ratio 1044.7 H (0-149) mg/g RPR (NONREACTIVE) ASSESSMENT: 17-year-old female s/p normal vaginal delivery PPD #1, complicated by preeclampsia without severe features, elevated one-hour glucose tolerance test with normal 3 hour glucose test, anemia in and history of anxiety and depression PLAN: Doing well Breast-feeding with minimal difficulty. Assist as needed Lochia minimal. Continue to monitor for appropriate lochia. Continue routine care Continue to monitor blood pressures closely to ensure that she is not having any severe range blood pressures that would need treatment Patient with mild anemia at 7.8 for her hemoglobin this morning. We will recheck tomorrow prior to discharge to ensure that it is stable. We will start on iron sulfate twice daily with meals to help with iron replacement. Anticipate discharge home tomorrow Amrik Medina MD 8:55 AM 07/22/2018
[2018-07-22] MEDS: Ferrous Sulfate 325 MG Tab PO SCH (16:19)
[2018-07-23] MEDS: Ferrous Sulfate 325 MG Tab PO SCH (07:01)
[2018-07-23] MEDS: Prenatal Multivitamin with Calcium/Folic Acid/Iron Tab PO SCH (08:12)
--- NOTE | 2018-07-23 08:15 | PCM.SN ---
- Free Text/Narrative Note: Post Progress Note PPD # 2 Subjective: Doing well overall. Ambulating without difficulty. Lochia minimal and bleeding decreasing since yesterday. Voiding without difficulty. Tolerating regular diet and denies any nausea or vomiting. Pain controlled with oral medications and improved since yesterday. Bottle-feeding with minimal difficulty. Denies any headaches, vision changes or epigastric pain. Objective: Vitals: Vital Signs - 24 hr 07/22/18 07/22/18 07/22/18 08:43 08:44 13:35 Temperature 36.5 C 36.8 C Pulse, 89 96 101 H Peripheral Respiratory 16 16 Rate Blood Pressure 149/84 H 140/88 O2 Sat by Pulse 99 98 98 Oximetry 07/22/18 07/22/18 07/23/18 19:53 22:14 03:00 Temperature 37.1 C Pulse, 118 H 108 H Peripheral Respiratory 16 16 Rate Blood Pressure 150/81 H 140/87 O2 Sat by Pulse 97 96 Oximetry 07/23/18 03:29 Temperature 36.6 C Pulse, 96 Peripheral Respiratory 14 Rate Blood Pressure 143/81 H O2 Sat by Pulse 96 Oximetry Physical Exam General: Alert and oriented, no acute distress Lungs: Clear to auscultation bilaterally Heart: Regular rate and rhythm Abdomen: Soft, minimal appropriate tenderness, non-distended, fundus midline, nontender, and at the umbilicus Extremities: 1+ edema in bilateral lower extremities to knees Laboratory Results - last 24 hr 07/23/18 Range/Units 05:30 WBC 15.99 H (3.98-10.04) K/mm3 RBC 3.69 L (3.98-5.22) M/mm3 Hgb 8.4 L (11.2-15.7) gm/L Hct 29.0 L (34.1-44.9) % MCV 78.6 L (79.4-94.8) fl MCH 22.8 L (25.6-32.2) pg MCHC 29.0 L (32.2-35.5) g/dl RDW Std Deviation 53.7 H (36.4-46.3) fL Plt Count 412 H (182-369) K/mm3 MPV 8.8 L (9.4-12.3) fl Neut % (Auto) 70.8 (34.0-71.1) % Lymph % (Auto) 16.2 L (19.3-51.7) % [place] % (Auto) 6.5 (4.7-12.5) % Eos % (Auto) 2.1 (0.7-5.8) Baso % (Auto) 0.3 (0.1-1.2) % Neut # (Auto) 11.31 H (1.56-6.13) K/mm3 Lymph # (Auto) 2.59 (1.18-3.74) K/mm3 [place] # (Auto) 1.04 H (0.24-0.36) K/mm3 Eos # (Auto) 0.34 (0.04-0.36) K/mm3 Baso # (Auto) 0.05 (0.01-0.08) K/mm3 Manual Slide Review Abnormal smear ASSESSMENT: 17-year-old female s/p normal vaginal delivery PPD #2, complicated by preeclampsia without severe features, elevated one-hour glucose tolerance test with normal 3 hour glucose test, anemia in and history of anxiety and depression PLAN: Doing well Bottle-feeding with minimal difficulty. Assist as needed Lochia minimal. Continue to monitor for appropriate lochia. Continue routine care Continue to monitor blood pressures closely to ensure that she is not having any severe range blood pressures that would need treatment Patient with mild anemia at 8.4 for her hemoglobin this morning. Patient on iron sulfate twice daily with meals to help with iron replacement. Discharge home today Amrik Medina MD 8:15 AM 07/23/2018
--- NOTE | 2018-07-23 08:28 | PCM.DCSUM1 ---
Discharge Summary - Hospital Course Free Text/Narrative:: - General Info Date of Service: 07/21/18 Mother's Due Date: 07/29/18 - Delivery Note Labor: Augmented by Oxytocin Cervical Ripening Method: Misoprostil, Oxytocin Delivery Outcome: Livebirth Infant Delivery Method: Spontaneous Vaginal Delivery-Single Presentation: Right Occiput Anterior (JOSE CRUZ) (with slight asynclitic presentation) Nuchal Cord: None Prep: Povidone-Iodine (Betadine Anesthesia Type: Epidural, Local Anesthetic: Lidocaine (Xylocaine) 1% Plain Local Anesthetic Volume: Other (10 ml) Amniotic Fluid Description: Clear Episiotomy Type: None Laceration: 2nd Degree, Perineal (Midline, repaired with 3-0 Vicryl) Suture type: Vicryl Suture size: 3-0 Placenta: Intact, Spontaneous Cord: 3 Vessels Estimated Blood Loss: 400 Resuscitation Needed: Yes [place]: Bulb Syringe, Stimulated, Warmed, [place] Used Provider: Amrik Medina Score 1 min: 9 Score 5 min: 9 Delivery Comments (Free Text/Narrative):: Stage I: Gladis Flaherty was admitted for medical induction of labor at 38 weeks 5 days for preeclampsia without severe features based on mild range blood pressures and elevated urine protein/creatinine ratio of 1.044. On admission her cervix was dilated to 0.5 cm. She was GBS negative. She was given 3 total doses of Cytotec 25 mcg vaginally for cervical ripening. She had spontaneous rupture membranes with clear fluid. She was given an epidural for anesthesia. In the morning of hospital day #2 she was 4 cm dilated and transitioned to Pitocin for augmentation of labor. She progressed complete and pushing. Stage II: On 07/21/2018 she had a normal vaginal delivery of a live male infant at 1430. Apgars of 9 & 9. Weight of 3950 g (8 lbs 11.3 oz). Length of 22 inches. There was no nuchal cord. was delivered in JOSE CRUZ position with slightly asynclitic presentation. The cord was doubly clamped and cut by father of the . was placed on mother's abdomen. Stage III: She had a spontaneous delivery of an intact placenta in Chery presentation. Three vessel cord. She was given pitocin and fundal massage. She had a second-degree midline perineal laceration that was repaired with 3-0 Vicryl. During repair of the laceration she had injection of 1% lidocaine 10 mL for local anesthesia. Mom and baby were stable to recovery. EBL of 400 mL. HPI Initial Comments: - General Info Date of Service: 07/21/18 Mother's Due Date: 07/29/18 - Delivery Note Labor: Augmented by Oxytocin Cervical Ripening Method: Misoprostil, Oxytocin Delivery Outcome: Livebirth Infant Delivery Method: Spontaneous Vaginal Delivery-Single Presentation: Right Occiput Anterior (JOSE CRUZ) (with slight asynclitic presentation) Nuchal Cord: None Prep: Povidone-Iodine (Betadine Anesthesia Type: Epidural, Local Anesthetic: Lidocaine (Xylocaine) 1% Plain Local Anesthetic Volume: Other (10 ml) Amniotic Fluid Description: Clear Episiotomy Type: None Laceration: 2nd Degree, Perineal (Midline, repaired with 3-0 Vicryl) Suture type: Vicryl Suture size: 3-0 Placenta: Intact, Spontaneous Cord: 3 Vessels Estimated Blood Loss: 400 Resuscitation Needed: Yes [place]: Bulb Syringe, Stimulated, Warmed, [place] Used Provider: Amrik Medina Score 1 min: 9 Score 5 min: 9 Delivery Comments (Free Text/Narrative):: Stage I: Gladis Flaherty was admitted for medical induction of labor at 38 weeks 5 days for preeclampsia without severe features based on mild range blood pressures and elevated urine protein/creatinine ratio of 1.044. On admission her cervix was dilated to 0.5 cm. She was GBS negative. She was given 3 total doses of Cytotec 25 mcg vaginally for cervical ripening. She had spontaneous rupture membranes with clear fluid. She was given an epidural for anesthesia. In the morning of hospital day #2 she was 4 cm dilated and transitioned to Pitocin for augmentation of labor. She progressed complete and pushing. Stage II: On 07/21/2018 she had a normal vaginal delivery of a live male at 1430. Apgars of 9 & 9. Weight of 3950 g (8 lbs 11.3 oz). Length of 22 inches. There was no nuchal cord. Infant was delivered in JOSE CRUZ position with slightly asynclitic presentation. The cord was doubly clamped and cut by father of the . Infant was placed on mother's abdomen. Stage III: She had a spontaneous delivery of an intact placenta in Chery presentation. Three vessel cord. She was given pitocin and fundal massage. She had a second-degree midline perineal laceration that was repaired with 3-0 Vicryl. During repair of the laceration she had injection of 1% lidocaine 10 mL for local anesthesia. Mom and baby were stable to recovery. EBL of 400 mL. Brief History: - General Info. Date of Service: 07/21/18. Mother's Due Date: 07/29/18. - Delivery Note. Labor: Augmented by Oxytocin. Cervical Ripening Method: Misoprostil, Oxytocin. Delivery Outcome: Livebirth. Delivery Method: Spontaneous Vaginal Delivery-Single. Presentation: Right Occiput Anterior (JOSE CRUZ) (with slight asynclitic presentation). Nuchal Cord: None. Prep : Povidone-Iodine (Betadine. Anesthesia Type: Epidural, Local. Anesthetic: Lidocaine (Xylocaine) 1% Plain. Local Anesthetic Volume: Other (10 ml). Amniotic Fluid Description: Clear. Episiotomy Type: None. Laceration: 2nd Degree, Perineal (Midline, repaired with 3-0 Vicryl). Suture type: Vicryl. Suture size: 3-0. Placenta: Intact, Spontaneous. Cord: 3 Vessels. Estimated Blood Loss: 400. Resuscitation Needed: Yes. : Bulb Syringe, Stimulated , Warmed, [place] Used. Provider: Amrik Medina. Score 1 min: 9. Score 5 min: 9. Delivery Comments (Free Text/Narrative):: Stage I: Gladis Flaherty was admitted for medical induction of labor at 38 weeks 5 days for preeclampsia without severe features based on mild range blood pressures and elevated urine protein/creatinine ratio of 1.044. On admission her cervix was dilated to 0.5 cm. She was GBS negative. She was given 3 total doses of Cytotec 25 mcg vaginally for cervical ripening. She had spontaneous rupture membranes with clear fluid. She was given an epidural for anesthesia. In the morning of hospital day #2 she was 4 cm dilated and transitioned to Pitocin for augmentation of labor. She progressed complete and pushing. Stage II: On 2018 she had a normal vaginal delivery of a live male at 1430. Apgars of 9 & 9. Weight of 3950 g (8 lbs 11.3 oz). Length of 22 inches. There was no nuchal cord. was delivered in JOSE CRUZ position with slightly asynclitic presentation. The cord was doubly clamped and cut by father of the infant. was placed on mother's abdomen. Stage III: She had a spontaneous delivery of an intact placenta in Chery presentation. Three vessel cord. She was given pitocin and fundal massage. She had a second-degree midline perineal laceration that was repaired with 3-0 Vicryl. During repair of the laceration she had injection of 1% lidocaine 10 mL for local anesthesia. Mom and baby were stable to recovery. EBL of 400 mL. Diagnosis: Stroke: No - Discharge Data Discharge Date: 07/23/18 Discharge Disposition: Home, Self-Care 01 Condition: Good - Discharge Diagnosis/Problem(s) (1) 38 weeks gestation of SNOMED Code(s): 19115217 ICD Code: Z3A.38 - 38 WEEKS GESTATION OF Status: Acute Current Visit: Yes (2) Pre-eclampsia during in third trimester, antepartum SNOMED Code(s): 632887824, 311239153 ICD Code: O14.93 - UNSPECIFIED PRE-ECLAMPSIA, THIRD TRIMESTER Status: Acute Current Visit: Yes (3) Abnormal glucose tolerance test during , antepartum Status: Acute Current Visit: Yes (4) Anemia affecting in third trimester SNOMED Code(s): 76803092, 86679987 ICD Code: O99.013 - ANEMIA COMPLICATING , THIRD TRIMESTER Status: Acute Current Visit: Yes (5) Anxiety SNOMED Code(s): 76429210 ICD Code: F41.9 - ANXIETY DISORDER, UNSPECIFIED Status: Acute Current Visit: Yes (6) Depression SNOMED Code(s): 13709796 ICD Code: F32.9 - MAJOR DEPRESSIVE DISORDER, SINGLE EPISODE, UNSPECIFIED Status: Acute Current Visit: Yes (7) Pre-eclampsia, delivered SNOMED Code(s): 299805959, 536188789 ICD Code: O14.94 - UNSPECIFIED PRE-ECLAMPSIA, COMPLICATING CHILDBIRTH Status: Acute Current Visit: Yes (8) Vaginal delivery SNOMED Code(s): 609277234 ICD Code: O80 - ENCOUNTER FOR FULL-TERM UNCOMPLICATED DELIVERY Status: Acute Current Visit: Yes (9) Second degree perineal laceration during delivery SNOMED Code(s): 3985763 ICD Code: O70.1 - SECOND DEGREE PERINEAL LACERATION DURING DELIVERY Status : Acute Current Visit: Yes - Patient Summary/Data Complications: None Consults: Consultations 07/21/18 18:19 Consult to Case Management/Bus Mechanic [CONS] Routine Hospital Course: Gladis Flaherty was admitted for medical induction of labor in the setting of preeclampsia without severe features. This is based on mildly elevated blood pressures into the 140s to 150s/80s to 90s and a urine protein/creatinine ratio of 1.044. On admission her cervix was dilated to 0.5 cm. She was GBS negative. She was given 3 doses of Cytotec 25 mcg vaginally for cervical ripening. She was given an epidural for anesthesia. She had spontaneous rupture of membranes with clear fluid. She was given pitocin for augmentation after she was dilated to 4 cm on hospital day #2. She progressed to complete and began pushing. On 07/21/2018 she had a normal vaginal delivery of a live male at 1430. Apgars of 9 and 9. Weight of 3950 g (8 pounds 11.3 ounces ). Her course was uneventful. Her pain was well controlled and she had minimal lochia. She was ambulating, tolerating a regular diet and voiding normally. She was bottlefeeding with minimal difficulty. She was afebrile and her hematocrit was 29.0 on day #2. She desired to be discharged home on the morning of PPD #2. Her blood type is A+. - Patient Instructions Diet: Regular Diet as Tolerated Activity: Apply Ice, As Tolerated Activity, Other: Nothing in the vagina for 6 weeks Driving: May Drive Today Showering/Bathing: May Shower Notify Provider of: Fever, Increased Pain, Swelling and Redness, Drainage, Nausea and/or Vomiting Other/Special Instructions: Please contact our office if you have heavy vaginal bleeding enough to soak a pad in less than an hour for several hours. Please contact our office if you have severe headache that does not improve with Tylenol or ibuprofen, spots in your vision or severe pain near your stomach. Monitor for any signs of an infection in the breasts with severe pain or redness of the breast. - Discharge Plan *PRESCRIPTION DRUG MONITORING PROGRAM REVIEWED*: Not Applicable *COPY OF PRESCRIPTION DRUG MONITORING REPORT IN PATIENT DARRYL: Not Applicable Home Medications: Home Meds Vit No.129/Iron/FA [ One Daily Tablet] 1 tab PO DAILY 02/27/18 [History] Promethazine [Phenergan] 25 mg PO Q6H PRN 07/02/18 [History] Acetaminophen [Tylenol] 650 mg PO Q6H PRN tablet 07/23/18 [Rx] Benzocaine/Menthol [Dermoplast Pain Relief Edgar] 1 spray TOP ASDIRECTED PRN canister 07/23/18 [Rx] Docusate Sodium [Colace] 100 mg PO BID PRN cap 07/23/18 [Rx] Ferrous Sulfate 325 mg PO BIDMEALS tablet 07/23/18 [Rx] Hydrocortisone Acetate [Anucort-HC] 25 mg RECTAL BID PRN supp 07/23/18 [Rx] Ibuprofen [Motrin] 600 mg PO Q6H PRN tablet 07/23/18 [Rx] Trae Kellerel [Tucks] 1 pad TOP ASDIRECTED PRN pad 07/23/18 [Rx] Patient Handouts: Vaginal Delivery, Care After, Care of a Perineal Tear Referrals: Amrik Medina MD [Primary Care Provider] - (Follow-up in clinic in 1 week for blood pressure check and visit or earlier as needed.) - Discharge Summary/Plan Comment DC Time >30 min.: No - Patient Data Vitals - Most Recent: Last Vital Signs Temp 36.6 C 07/23/18 03:29 Pulse 96 07/23/18 03:29 Resp 14 07/23/18 03:29 BP 143/81 H 07/23/18 03:29 Pulse Ox 96 07/23/18 03:29 Weight - Most Recent: 105.007 kg I&O - Last 24 hours: Intake & Output 07/22/18 07/23/18 07/23/18 22:59 06:59 14:59 Intake Total 420 Balance 420 Lab Results - Last 24 hrs: Laboratory Results - last 24 hr 07/23/18 Range/Units 05:30 WBC 15.99 H (3.98-10.04) K/mm3 RBC 3.69 L (3.98-5.22) M/mm3 Hgb 8.4 L (11.2-15.7) gm/L Hct 29.0 L (34.1-44.9) % MCV 78.6 L (79.4-94.8) fl MCH 22.8 L (25.6-32.2) pg MCHC 29.0 L (32.2-35.5) g/dl RDW Std Deviation 53.7 H (36.4-46.3) fL Plt Count 412 H (182-369) K/mm3 MPV 8.8 L (9.4-12.3) fl Neut % (Auto) 70.8 (34.0-71.1) % Lymph % (Auto) 16.2 L (19.3-51.7) % Tillman % (Auto) 6.5 (4.7-12.5) % Eos % (Auto) 2.1 (0.7-5.8) Baso % (Auto) 0.3 (0.1-1.2) % Neut # (Auto) 11.31 H (1.56-6.13) K/mm3 Lymph # (Auto) 2.59 (1.18-3.74) K/mm3 Tillman # (Auto) 1.04 H (0.24-0.36) K/mm3 Eos # (Auto) 0.34 (0.04-0.36) K/mm3 Baso # (Auto) 0.05 (0.01-0.08) K/mm3 Manual Slide Review Abnormal smear Med Orders - Current: Current Medications Acetaminophen (Tylenol) 650 mg PO Q6H PRN PRN Reason: mild pain or fever Last Admin: 07/21/18 21:26 Dose: 650 mg Benzocaine/Menthol (Dermoplast Pain Relief Edgar) 0 gm TOP ASDIRECTED PRN PRN Reason: Perineal Comfort Measure Last Admin: 07/21/18 16:24 Dose: 1 can Docusate Sodium (Colace) 100 mg PO BID PRN PRN Reason: Constipation Last Admin: 07/21/18 16:25 Dose: 100 mg Emollient Ointment (Lansinoh Hpa) 0 gm TOP ASDIRECTED PRN PRN Reason: Sore Nipples Ferrous Sulfate (Ferrous Sulfate) 325 mg PO BIDMEALS ELLIOTT Last Admin: 07/23/18 07:01 Dose: 325 mg Hydrocortisone Acetate (Anucort-Hc) 25 mg RECTAL BID PRN PRN Reason: Hemorrhoid pain Oxytocin/Lactated Ringer's (Pitocin In Lr 10 Units/1,000 Ml) 10 unit in 1,000 mls @ 100 mls/hr IV TITRATE ELLOITT; Protocol Ibuprofen (Motrin) 600 mg PO Q6H PRN PRN Reason: Mild pain or fever Last Admin: 07/22/18 16:19 Dose: 600 mg Prenat Multivit/[place]/Iron/Folic Ac ( Plus Iron) 1 each PO DAILY ELLIOTT Last Admin: 07/23/18 08:12 Dose: 1 each Witch Lucía (Tucks) 1 pad TOP ASDIRECTED PRN PRN Reason: Perineal Comfort Measure Last Admin: 07/21/18 16:22 Dose: 1 can Discontinued Medications Bupivacaine HCl (Sensorcaine-Mpf 0.25%) 10 ml .ROUTE .STK-MED ONE Stop: 07/20/18 22:01 Calcium Gluconate (Calcium Gluconate) 1 gm IV ASDIRECTED PRN PRN Reason: respiratory distress Diphenhydramine HCl (Benadryl) 25 mg IVPUSH Q6H PRN PRN Reason: Pruritis Ephedrine Sulfate (Ephedrine Sulfate) 5 mg IVPUSH ONETIME PRN PRN Reason: Hypotension Fentanyl (Sublimaze) Confirm Administered Dose 100 mcg .ROUTE .STK-MED ONE Stop: 07/21/18 05:16 Last Admin: 07/21/18 07:30 Dose: Not Given Fentanyl (Sublimaze) 100 mcg EPIDUR Q3H PRN PRN Reason: Pain Last Admin: 07/21/18 05:47 Dose: 100 mcg Fentanyl/Bupivacaine HCl (Hnvqzhfo-Kpzbp-Nr 2 Mcg/Ml-0.125%) 100 ml EPIDUR ONETIME ONE Stop: 07/21/18 05:21 Last Admin: 07/21/18 05:48 Dose: 100 ml Fentanyl/Bupivacaine HCl (Izgmmubp-Sijsw-Je 2 Mcg/Ml-0.125%) 100 ml EPIDUR ONETIME PRN PRN Reason: Abdominal Pain Last Admin: 07/21/18 13:36 Dose: 100 ml Lactated Ringer's (Ringers, Lactated) 1,000 mls @ 100 mls/hr IV ASDIRECTED ELLIOTT Last Admin: 07/21/18 12:19 Dose: 125 mls/hr Oxytocin/Lactated Ringer's (Pitocin In Lr 10 Units/1,000 Ml) 10 unit in 1,000 mls @ 100 mls/hr IV .CONTINUOUS ELLIOTT Oxytocin/Lactated Ringer's (Pitocin In Lr 10 Units/1,000 Ml) 10 unit in 1,000 mls @ 12 mls/hr IV TITRATE ELLIOTT; Protocol Last Titration: 07/21/18 14:30 Dose: 500 mls/hr Lidocaine HCl (Xylocaine 1%) 50 ml INJECT ONETIME ONE Stop: 07/21/18 14:52 Last Admin: 07/21/18 14:30 Dose: 50 ml Misoprostol (Cytotec) 25 mcg VAG Q4H PRN PRN Reason: cervical ripening Last Admin: 07/20/18 18:26 Dose: 25 mcg Misoprostol (Cytotec) Confirm Administered Dose 25 mcg .ROUTE .STK-MED ONE Stop: 07/20/18 18:17 Last Admin: 07/20/18 18:22 Dose: Not Given Misoprostol (Cytotec) Confirm Administered Dose 25 mcg .ROUTE .STK-MED ONE Stop: 07/20/18 22:40 Last Admin: 07/21/18 00:06 Dose: 25 mcg Misoprostol (Cytotec) Confirm Administered Dose 25 mcg .ROUTE .STK-MED ONE Stop: 07/21/18 04:25 Last Admin: 07/21/18 04:32 Dose: 25 mcg Misoprostol (Cytotec) 25 mcg VAG Q4H PRN PRN Reason: cervical ripening Ondansetron HCl (Zofran) 4 mg IVPUSH Q4H PRN PRN Reason: Nausea/Vomiting Sodium Chloride (Saline Flush) 10 ml FLUSH ASDIRECTED PRN PRN Reason: Keep Vein Open
== END 2018-07-23 13:50 | disposition home or self-care (01) | DRG 807 ==
LOC: JD.OBCHECK 14:31 → JD.OB 15:43 → JD.OBCHECK 17:56 → JD.OB 17:57 → OBSVTOIN 07-21 14:30 → JD.OB 07-21 14:31
PROVIDERS: ADMIT Obstetrics & Gynecology; ATTEND Obstetrics & Gynecology
PROC: 10E0XZZ Delivery of Products of Conception, External Approach (ICD-10-PCS; principal; 2018-07-21)
PROC: 0KQM0ZZ Repair Perineum Muscle, Open Approach (ICD-10-PCS; principal; 2018-07-21)
PROC: 3E0P7VZ Introduction of Hormone into Female Reproductive, Via Natural or Artificial Opening (ICD-10-PCS; principal; 2018-07-21)
PROC: 00HU33Z Insertion of Infusion Device into Spinal Canal, Percutaneous Approach (ICD-10-PCS; 2018-07-21)
PROC: 3E0R3BZ Introduction of Anesthetic Agent into Spinal Canal, Percutaneous Approach (ICD-10-PCS; 2018-07-21)
DX: O14.94 Unspecified pre-eclampsia, complicating childbirth (principal); Z37.0 Single live birth; O32.8XX0 Maternal care for other malpresentation of fetus, not applicable or unspecified; Z3A.38 38 weeks gestation of pregnancy; O70.1 Second degree perineal laceration during delivery; O99.344 Other mental disorders complicating childbirth; O99.02 Anemia complicating childbirth; D64.9 Anemia, unspecified; F41.9 Anxiety disorder, unspecified; F32.9 Major depressive disorder, single episode, unspecified; Z87.440 Personal history of urinary (tract) infections; Z91.5 Personal history of self-harm
CPT/HCPCS: 01967; 36415; 51702; 59025; 59409; 80053; 82570; 84156; 85025; 86592; A9270-GY; J2001; J2590; J3010; J3490; J7120

== ENCOUNTER 2019-12-16 00:20 | Emergency (ER) | payer SELFPAY ==
--- NOTE | 2019-12-16 01:14 | EDM.PDOC ---
ED HPI GENERAL MEDICAL PROBLEM - General Chief Complaint: Respiratory Problem Stated Complaint: sore throat cough Time Seen by Provider: 12/16/19 00:35 Source of Information: Reports: Patient History Limitations: Reports: No Limitations - History of Present Illness INITIAL COMMENTS - FREE TEXT/NARRATIVE: The patient presents with a cough, congestion, runny nose and fever. This started a few days ago. She has no chest pain and she does not feel short of breath. She has no medical problems. She has not been around any one with COVID 19. She does have a sore throat also. Onset: Gradual Duration: Day(s): Location: Reports: Other (Throat) Quality: Reports: Ache Severity: Mild Improves with: Reports: None Worsens with: Reports: None Associated Symptoms: Reports: Cough, Fever/Chills. 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: Reports: , Spontaneous Psychiatric History: Reports: Anxiety, Depression, Suicide Attempt - Past Surgical History HEENT Surgical History: Reports: Other (See Below) Other HEENT Surgeries/Procedures: ear surgery Social & Family History - Family History Family Medical History: Noncontributory - Tobacco Use Smoking Status *Q: Never Smoker Second Hand Smoke Exposure: No - Caffeine Use Caffeine Use: Reports: None - Recreational Drug Use Recreational Drug Use: No - Living Situation & Occupation Living situation: Reports: Single Occupation: Employed ED ROS GENERAL - Review of Systems Review Of Systems: See Below Constitutional: Reports: Fever, Chills HEENT: Reports: Throat Pain Respiratory: Reports: Cough. Denies: Shortness of Breath Cardiovascular: Reports: No Symptoms Endocrine: Reports: No Symptoms GI/Abdominal: Reports: No Symptoms ED EXAM, GENERAL - Physical Exam Exam: See Below Exam Limited By: No Limitations General Appearance: Alert, No Apparent Distress Ears: Normal External Exam Nose: Normal Inspection Throat/Mouth: Normal Inspection Head: Atraumatic, Normocephalic Neck: Normal Inspection, Supple, Non-Tender Respiratory/Chest: No Respiratory Distress, Lungs Clear, Normal Breath Sounds Cardiovascular: Regular Rate, Rhythm, No Edema, No Murmur GI/Abdominal: Soft, Non-Tender, No Organomegaly, No Mass Back Exam: Normal Inspection Extremities: Normal Inspection Course - Vital Signs Last Recorded V/S: Last Vital Signs Temp 97.6 F 12/16/19 00:42 Pulse 102 H 12/16/19 00:42 Resp 20 12/16/19 00:42 BP 146/81 H 12/16/19 00:42 Pulse Ox 95 12/16/19 00:42 - Orders/Labs/Meds Orders: Active Orders 24 hr Category Date Time Status CORONAVIRUS COVID-19 PCR [facility] Stat Lab 12/16/19 01:04 Ordered - Re-Assessments/Exams Free Text/Narrative Re-Assessment/Exam: 12/16/19 01:12 I will check her for COVID 19. Departure - Departure Time of Disposition: 01:15 Disposition: Home, Self-Care 01 Condition: Good Clinical Impression: Viral URI with cough - Discharge Information *PRESCRIPTION DRUG MONITORING PROGRAM REVIEWED*: Not Applicable *COPY OF PRESCRIPTION DRUG MONITORING REPORT IN PATIENT DARRYL: Not Applicable Referrals: PCP,None [Primary Care Provider] - Additional Instructions: Drink plenty of fluids. Take tylenol or motrin for any fever. You can try over the counter cough and cold medicines. They may help. Please return if you are worse. Sepsis Event Note (ED) - Evaluation Sepsis Screening Result: No Definite Risk - Focused Exam Vital Signs: Vital Signs Temp Pulse Resp BP Pulse Ox 12/16/19 00:42 97.6 F 102 H 20 146/81 H 95 - My Orders Last 24 Hours: My Active Orders 12/16/19 01:04 CORONAVIRUS COVID-19 PCR [facility] Stat - Assessment/Plan Last 24 Hours: My Active Orders 12/16/19 01:04 CORONAVIRUS COVID-19 PCR [facility] Stat
== END 2019-12-16 01:36 | disposition home or self-care (01) ==
LOC: JD.ED 00:20
DX: J06.9 Acute upper respiratory infection, unspecified (principal); Z20.828 Contact with and (suspected) exposure to other viral communicable diseases
CPT/HCPCS: 99282; 99283; U0002

== ENCOUNTER 2021-11-14 14:08 | Emergency (ER) | payer SELFPAY ==
[2021-11-14 15:48] LABS: ESTIMATED GFR 107 mL/min (>60)
[2021-11-14 15:49] LABS: ACETAMINOPHEN 0 ug/mL (10-30)
== END 2021-11-14 17:45 ==
LOC: EDSEX 14:08 → MERGE 14:08 → JD.ED 14:08
DX: F32.A Depression, unspecified (principal); F17.210 Nicotine dependence, cigarettes, uncomplicated; Z20.822 Contact with and (suspected) exposure to COVID-19
CPT/HCPCS: 36415; 80053; 80143; 80179; 80306; 80307; 81025; 84443; 85007; 85027; 93005; 93010; 99284; 99285; U0002

== ENCOUNTER 2023-05-06 22:46 | Emergency (ER) | payer MEDICAID ==
[2023-05-07] MEDS: Ondansetron 4 MG/2 ML SDV IVPUSH ONE (00:09)
[2023-05-07] MEDS: Sodium Chloride 0.9% 10 ML Syringe FLUSH PRN (00:09)
[2023-05-07 00:10] LABS: APPEARANCE,URINE CLEAR (Clear); BILIRUBIN,URINE NEGATIVE (Negative); COLOR,URINE YELLOW (Yellow); GLUCOSE,URINE NEGATIVE (Negative); KETONES,URINE 1+ (Negative); LEUKOCYTE ESTERASE,URINE NEGATIVE (Negative); NITRITE,URINE NEGATIVE (Negative); OCCULT BLOOD,URINE NEGATIVE (Negative); PROTEIN,URINE NEGATIVE (Negative); UROBILINOGEN,URINE 0.2 (0.2-1.0)
[2023-05-07 00:12] LABS: BASOPHILS ABSOLUTE AUTO 0.1 K/mm3 (0.0-0.2); BASOPHILS PERCENT AUTO 0.5 % (0.0-1.0); EOSINOPHILS ABSOLUTE AUTO 0.1 K/mm3 (0.0-0.4); EOSINOPHILS PERCENT AUTO 0.8 % (0.0-6.0); HEMATOCRIT 39.1 % (37.0-47.0); IMMATURE GRAN ABSOLUTE AUTO 0.06 K/mm3 (0.00-0.05); IMMATURE GRAN PERCENT AUTO 0.4 % (0.0-0.4); LYMPHOCYTES ABSOLUTE AUTO 3.5 K/mm3 (1.0-4.8); LYMPHOCYTES PERCENT AUTO 22.1 % (24.0-44.0); MEAN CORPUSCULAR HEMOGLOBIN 27.3 pg (28.0-32.0); MEAN CORPUSCULAR HGB CONC 33.2 g/dl (32.0-36.0); MEAN CORPUSCULAR VOLUME 82.1 fl (83.0-99.0); MEAN PLATELET VOLUME 8.4 fl (9.4-12.3); MONOCYTES ABSOLUTE AUTO 0.7 K/mm3 (0.0-0.8); MONOCYTES PERCENT AUTO 4.5 % (0.0-8.0); NEUTROPHILS ABSOLUTE AUTO 11.5 K/mm3 (1.8-7.7); NEUTROPHILS PERCENT AUTO 71.7 % (41.0-71.0); PLATELET COUNT,PLT 426 K/mm3 (150-400); RED BLOOD CELL COUNT 4.76 M/mm3 (4.10-5.30); WHITE BLOOD CELL COUNT,WBC 15.95 K/mm3 (3.9-11.3)
[2023-05-07 00:39] LABS: A/G RATIO 0.7 (1-2); ALBUMIN 3.4 g/dl (3.4-5.0); ANION GAP 15.4 (5-15); BILIRUBIN TOTAL 0.3 mg/dL (0.2-1.0); BUN/CREATININE RATIO 4.3 (14-18); CALCIUM 9.1 mg/dL (8.5-10.1); CREATININE 0.7 mg/dL (0.55-1.02); EST CRCL DRUG DOSING (CG) 111.51 mL/min; MAGNESIUM 1.8 mg/dL (1.8-2.4); POTASSIUM,K 3.4 mEq/L (3.5-5.1); PROTEIN TOTAL,TP 8.2 g/dl (6.4-8.2)
[2023-05-07 00:46] LABS: BACTERIA,URINE FEW /hpf (FEW); MUCUS,URINE NOT SEEN /hpf (FEW); RBC,URINE 0-5 /hpf (0-5); WBC,URINE 0-5 /hpf (0-5)
[2023-05-07 01:40] LABS: CORONAVIRUS COVID-19 NAA NEGATIVE (NEGATIVE); INFLUENZA A NAA NEGATIVE (NEGATIVE); RESPIRATORY SYNCYTIAL VIR NAA NEGATIVE (NEGATIVE)
== END 2023-05-07 02:15 | disposition home or self-care (01) ==
LOC: JD.ED 22:46
DX: O99.611 Diseases of the digestive system complicating pregnancy, first trimester (principal); Z3A.12 12 weeks gestation of pregnancy
CPT/HCPCS: 0241U; 36415; 80053; 81001; 83735; 85025; 96374; 99284; J2405; J3490

== ENCOUNTER 2023-10-20 02:45 | Inpatient (IN) | payer MEDICAID ==
[2023-10-20] MEDS ORDERED: Calcium Carbonate 500 MG Tab.Chew PO PRN (08:44)
[2023-10-20] MEDS ORDERED: Sodium Chloride 0.9% 10 ML Syringe FLUSH PRN (08:44)
[2023-10-20] MEDS ORDERED: Acetaminophen 325 MG Tab PO PRN (08:44)
[2023-10-20] MEDS ORDERED: Ondansetron 4 MG/2 ML SDV IVPUSH PRN (08:44)
[2023-10-20] MEDS ORDERED: Nalbuphine 10 MG/1 ML Vial IVPUSH PRN (08:44)
[2023-10-20] MEDS ORDERED: Famotidine 20 MG Tab PO PRN (08:44)
[2023-10-20] MEDS ORDERED: Lidocaine 1% 50 ML MDV INJECT PRN (08:44)
[2023-10-20] MEDS ORDERED: Oxytocin/0.9 % Sodium Chloride 30 UNIT/500 ML BAG IV SCH (08:45)
[2023-10-20] MEDS: Lactated Ringers 1,000 ML IV SCH (09:23)
[2023-10-20] MEDS: Penicillin G Potassium 5 MILLUNITS in Sodium Chloride 0.9% 100 ML IV ONE (09:24)
[2023-10-20] MEDS: Sodium Chloride 0.9% 10 ML Syringe FLUSH SCH (09:34)
[2023-10-20] MEDS: Misoprostol 25 MCG (1/4 of 100 MCG) Tab VAG ONE (09:36)
[2023-10-20 09:41] LABS: BASOPHILS PERCENT AUTO 0.5 % (0.0-1.0); EOSINOPHILS ABSOLUTE AUTO 0.1 K/mm3 (0.0-0.4); HEMATOCRIT 33.8 % (37.0-47.0); IMMATURE GRAN ABSOLUTE AUTO 0.14 K/mm3 (0.00-0.05); IMMATURE GRAN PERCENT AUTO 1.6 % (0.0-0.4); LYMPHOCYTES ABSOLUTE AUTO 1.6 K/mm3 (1.0-4.8); LYMPHOCYTES PERCENT AUTO 18.5 % (24.0-44.0); MEAN CORPUSCULAR HEMOGLOBIN 28.5 pg (28.0-32.0); MEAN CORPUSCULAR HGB CONC 32.5 g/dl (32.0-36.0); MEAN CORPUSCULAR VOLUME 87.6 fl (83.0-99.0); MEAN PLATELET VOLUME 9.2 fl (9.4-12.3); MONOCYTES ABSOLUTE AUTO 0.6 K/mm3 (0.0-0.8); MONOCYTES PERCENT AUTO 7.1 % (0.0-8.0); NEUTROPHILS ABSOLUTE AUTO 6.3 K/mm3 (1.8-7.7); NEUTROPHILS PERCENT AUTO 71.3 % (41.0-71.0); PLATELET COUNT,PLT 259 K/mm3 (150-400); RED BLOOD CELL COUNT 3.86 M/mm3 (4.10-5.30); WHITE BLOOD CELL COUNT,WBC 8.86 K/mm3 (3.9-11.3)
[2023-10-20 10:09] LABS: BARBITURATE SCREEN,URINE NEGATIVE (CUTOFF=200); BENZODIAZEPINES SCREEN,URINE NEGATIVE (CUTOFF=150); BUPRENORPHINE SCREEN,URINE NEGATIVE (CUTOFF=10); METHADONE SCREEN, URINE NEGATIVE (CUTOFF=200); METHAMPHETAMINES SCREEN, URINE NEGATIVE (CUTOFF=500); OXYCODONE SCREEN,URINE NEGATIVE (CUT0FF=100); THC SCREEN,URINE 20 NG/ML NEGATIVE (CUTOFF=50)
[2023-10-20 10:11] LABS: AMPHETAMINES SCREEN, URINE NEGATIVE (CUTOFF=500)
[2023-10-20] MEDS ORDERED: ePHEDrine 50 MG/ML SDV IVPUSH PRN (12:44)
[2023-10-20] MEDS ORDERED: Misoprostol 25 MCG (1/4 of 100 MCG) Tab VAG PRN (13:30)
[2023-10-20] MEDS: Penicillin G Potassium 2.5 MILLUNITS in Sodium Chloride 0.9% 100 ML IV SCH (13:36)
[2023-10-20] MEDS: Oxytocin/0.9 % Sodium Chloride 30 UNIT/500 ML BAG IV SCH (14:18)
[2023-10-20] MEDS: fentaNYL 100 MCG/2 ML SDV EPIDUR PRN (22:19)
[2023-10-20] MEDS: Bupivacaine/fentaNYL/NS 100 ML Bag EPIDUR PRN (22:19)
[2023-10-21] MEDS ORDERED: Bupivacaine 0.25% 10 ML SDV ONE
[2023-10-21] MEDS: diphenhydrAMINE 50 MG/ML SDV IVPUSH PRN (00:24)
[2023-10-21] MEDS ORDERED: Docusate Sodium 100 MG Cap PO PRN (05:30)
[2023-10-21] MEDS: Ibuprofen 600 MG Tab PO SCH (05:42)
[2023-10-21] MEDS: Witch Hazel Medicated Pads 40/Jar TOP PRN (05:42)
[2023-10-21] MEDS: Benzocaine/Menthol 20%-0.5% Spray 78 GM Cannister TOP PRN (05:42)
[2023-10-21] MEDS ORDERED: Ferrous Sulfate 324 MG Tab.EC PO SCH (07:00)
[2023-10-21] MEDS: Prenatal Multivitamin with Calcium/Folic Acid/Iron Tab PO SCH (10:16)
[2023-10-21] MEDS: Ferrous Sulfate 324 MG Tab.EC PO SCH (10:16)
[2023-10-22 06:54] LABS: HEMATOCRIT 33.7 % (37.0-47.0); MEAN CORPUSCULAR HEMOGLOBIN 28.1 pg (28.0-32.0); MEAN CORPUSCULAR HGB CONC 32.6 g/dl (32.0-36.0); MEAN CORPUSCULAR VOLUME 86.2 fl (83.0-99.0); PLATELET COUNT,PLT 248 K/mm3 (150-400); RED BLOOD CELL COUNT 3.91 M/mm3 (4.10-5.30); WHITE BLOOD CELL COUNT,WBC 10.93 K/mm3 (3.9-11.3)
[2023-10-22 17:12] LABS: BASOPHILS ABSOLUTE AUTO 0.1 K/mm3 (0.0-0.2); BASOPHILS PERCENT AUTO 0.5 % (0.0-1.0); EOSINOPHILS ABSOLUTE AUTO 0.1 K/mm3 (0.0-0.4); EOSINOPHILS PERCENT AUTO 1.3 % (0.0-6.0); HEMATOCRIT 33.9 % (37.0-47.0); HEMOGLOBIN 11.2 gm/dl (12.0-16.0); LYMPHOCYTES ABSOLUTE AUTO 1.9 K/mm3 (1.0-4.8); LYMPHOCYTES PERCENT AUTO 18.9 % (24.0-44.0); MEAN CORPUSCULAR HEMOGLOBIN 28.4 pg (28.0-32.0); MEAN PLATELET VOLUME 9.1 fl (9.4-12.3); MONOCYTES ABSOLUTE AUTO 0.5 K/mm3 (0.0-0.8); NEUTROPHILS ABSOLUTE AUTO 7.6 K/mm3 (1.8-7.7); NEUTROPHILS PERCENT AUTO 73.3 % (41.0-71.0); PLATELET COUNT,PLT 254 K/mm3 (150-400); RED BLOOD CELL COUNT 3.94 M/mm3 (4.10-5.30); WHITE BLOOD CELL COUNT,WBC 10.28 K/mm3 (3.9-11.3)
[2023-10-22 17:41] LABS: A/G RATIO 0.6 (1-2); ALBUMIN 2.2 g/dl (3.4-5.0); ANION GAP 11.8 (5-15); BILIRUBIN TOTAL 0.2 mg/dL (0.2-1.0); CALCIUM 8.5 mg/dL (8.5-10.1); CREATININE 0.8 mg/dL (0.55-1.02); EST CRCL DRUG DOSING (CG) 97.57 mL/min; POTASSIUM,K 3.8 mEq/L (3.5-5.1); TSH 2.818 uIU/mL (0.358-3.74)
[2023-10-22 19:36] LABS: APPEARANCE,URINE CLOUDY (Clear); BILIRUBIN,URINE NEGATIVE (Negative); COLOR,URINE ORANGE (Yellow); GLUCOSE,URINE NEGATIVE (Negative); KETONES,URINE NEGATIVE (Negative); LEUKOCYTE ESTERASE,URINE 1+ (Negative); NITRITE,URINE NEGATIVE (Negative); OCCULT BLOOD,URINE 2+ (Negative); PH,URINE 6.5 (5.0-8.0); PROTEIN,URINE 1+ (Negative); UROBILINOGEN,URINE 0.2 (0.2-1.0)
[2023-10-22 19:45] LABS: BARBITURATE SCREEN,URINE NEGATIVE (CUTOFF=200); BENZODIAZEPINES SCREEN,URINE NEGATIVE (CUTOFF=150); BUPRENORPHINE SCREEN,URINE NEGATIVE (CUTOFF=10); METHADONE SCREEN, URINE NEGATIVE (CUTOFF=200); METHAMPHETAMINES SCREEN, URINE NEGATIVE (CUTOFF=500); OXYCODONE SCREEN,URINE NEGATIVE (CUT0FF=100); THC SCREEN,URINE 20 NG/ML NEGATIVE (CUTOFF=50)
[2023-10-22 19:48] LABS: AMPHETAMINES SCREEN, URINE NEGATIVE (CUTOFF=500)
[2023-10-22 19:56] LABS: RBC,URINE >100 /hpf (0-5)
[2023-10-22 19:57] LABS: BACTERIA,URINE FEW /hpf (FEW); MUCUS,URINE FEW /hpf (FEW)
== END 2023-10-23 14:22 | disposition home or self-care (01) | DRG 807 ==
LOC: JD.OB 02:45 → OBSVTOIN 10-21 02:45 → JD.OB 10-21 02:46
PROVIDERS: ADMIT Family Medicine; ATTEND Family Medicine
PROC: 10E0XZZ Delivery of Products of Conception, External Approach (ICD-10-PCS; principal; 2023-10-21)
PROC: 0KQM0ZZ Repair Perineum Muscle, Open Approach (ICD-10-PCS; 2023-10-21)
PROC: 10907ZC Drainage of Amniotic Fluid, Therapeutic from Products of Conception, Via Natural or Artificial Opening (ICD-10-PCS; 2023-10-21)
PROC: 3E033VJ Introduction of Other Hormone into Peripheral Vein, Percutaneous Approach (ICD-10-PCS; 2023-10-21)
PROC: 3E0P7VZ Introduction of Hormone into Female Reproductive, Via Natural or Artificial Opening (ICD-10-PCS; 2023-10-21)
PROC: 3E0R3BZ Introduction of Anesthetic Agent into Spinal Canal, Percutaneous Approach (ICD-10-PCS; 2023-10-21)
PROC: 00HU33Z Insertion of Infusion Device into Spinal Canal, Percutaneous Approach (ICD-10-PCS; 2023-10-21)
DX: O14.94 Unspecified pre-eclampsia, complicating childbirth (principal); Z37.0 Single live birth; O99.02 Anemia complicating childbirth; O99.824 Streptococcus B carrier state complicating childbirth; Z3A.39 39 weeks gestation of pregnancy; O70.1 Second degree perineal laceration during delivery; O69.81X0 Labor and delivery complicated by cord around neck, without compression, not applicable or unspecified; O99.324 Drug use complicating childbirth; F12.91 Cannabis use, unspecified, in remission
CPT/HCPCS: 36415; 51701; 51702; 59025; 59409; 80053; 80306; 81001; 84443; 85025; 85027; 86592; 86850; 86900; 86901; A9270-GY; J0665; J1200; J2540; J3010; J3490; J7120